=== PATIENT | female | born 1985 | race Caucasian/White ===

== ENCOUNTER 2016-04-13 12:42 | Emergency (ER) | payer OTHER ==
--- NOTE | 2016-04-13 13:40 | ED CLINICAL REPORT ---
Clinical Report - Physicians/Mid Levels [facility] [address] [place] [address] 04/13/2016 12:45 [id number] Time Seen: 13:17; initial patient contact, initial documentation, patient care assumed. Arrived- By private vehicle. Historian- patient. HISTORY OF PRESENT ILLNESS Chief Complaint: COUGH, FEVER, CHILLS and MUSCLE ACHES. This started about 6 days ago and is still present. The illness is described as moderate. The patient has had a cough, a sore throat, nasal congestion, sinus pressure and sinus drainage. She has had fever, muscle aches, a nasal discharge and ear pain. She has had scant amounts of thick, green sputum. No difficulty breathing or chest discomfort or pain. (has not had to use her inhalers). Additional history - No known contact with a sick individual. No recent travel. Similar symptoms previously: None. Recent medical care: Not recently seen/assessed. REVIEW OF SYSTEMS The patient has had a headache. No vomiting or diarrhea. All systems otherwise negative, except as recorded above. PAST HISTORY See nurses notes. PROBLEMS: Urinary Retention. Benign Prostatic Hypertrophy. UTI - Urinary Tract Infection. Incontinence. Bladder Infections. Frequent urination. Hypertension. Elevated Cholesterol. --12:53 Kelsea Quinn RBrianN. ADDITIONAL SURGERIES: Both hands operated on. Coronary Artery Bypass Graft. Hernia Repair. --12:53 Kelsea Quinn R.N. SOCIAL HISTORY Light tobacco smoker. Occasional alcohol use. Not exposed to second-hand smoke at home. No drug use. No recent travel. Is a local resident. FAMILY HISTORY Negative. ADDITIONAL NOTES The nursing notes have been reviewed with agreement regarding the chief complaint, HPI, ROS, PMH and patient medications and allergies. PHYSICAL EXAM Vital Signs: 04/13/2016 13:12 BP: 137/81. HR: 66. RR: 20. O2 saturation: 99%. Temp: 98.1 F. Pain level now: 5/10. Have been reviewed as normal and appear to be correct. Appearance: Alert. No acute distress. Eyes: Pupils equal, round and reactive to light. Eyes normal inspection. ENT: Ears not normal. Nose abnormal. Pharynx abnormal. Uvula midline. (post nasal drip seen, mild fluid behind B TM's, and mild frontal and maxillary sinus pressure). Neck: Normal inspection. Neck supple. CVS: Normal heart rate and rhythm. Heart sounds normal. Pulses normal. Respiratory: No respiratory distress. Breath sounds abnormal. Mild rales present in the bases bilaterally (very fine). Abdomen: Soft and nontender. No organomegaly. Back: Normal inspection. Skin: Skin warm and dry. Normal skin color. No rash. Normal skin turgor. Extremities: Extremities exhibit normal ROM. No lower extremity edema. Neuro: Oriented X 3. No motor deficit. No sensory deficit. PROGRESS AND PROCEDURES Patient counseled in person regarding the patient's stable condition and diagnosis. 13:39. Differential Diagnosis: Other possible considerations: asthma, flu, allergies, sinusitis, uri, bronchitis, pneumonia. Above considerations are based on history and physical exam. Differential diagnosis was discussed with patient. Disposition: Discharged home in good and unchanged condition (13:40). Condition: good and stable. CLINICAL IMPRESSION Acute maxillary and frontal sinusitis INSTRUCTIONS Alternate Tylenol (Acetaminophen) and Motrin (Ibuprofen) for fever, temperature greater than 101 degrees orally. Take according to label instructions. Drink plenty of fluids for the next 24 hours until better. Do not smoke. (over the counter saline sinus wash). Warnings: GENERAL WARNINGS: Return or contact your physician immediately if your condition worsens or changes unexpectedly, if not improving as expected, or if other problems arise. Specifically return if problem worsens. Prescription Medications: Nasacort nasal spray: 2 sprays in each nostril once daily as needed for allergies. Dispense one (1) unit. No refills. Substitution is permissible. Keflex 500 mg: take 1 capsule orally every 8 hours for 10 days. No refill. Follow-up: Follow up with your doctor in about five days even if well. Call for an appointment. Summary of care provided to patient. Understanding of the discharge instructions verbalized by patient. (Electronically signed by Diamond Gaona A.R.N.P. 04/13/2016 14:19)
--- NOTE | 2016-04-13 13:40 | ED NURSING NOTES ---
Clinical Report - Nurses [facility] [address] [place] [address] 04/13/2016 12:45 [id number] TRI[facility] Triage time 13:12. Acuity: LEVEL 3. Chief Complaint: FEVER, CHILLS, MUSCLE ACHES, FAINTING and NASAL CONGESTION (lt ear worse, both sound muffled.). Alert. No acute distress. SEPSIS SCREEN: Sepsis Screen: negative. Negative (no infection suspected/documented). SENAIT COMA SCORE: Senait Coma Scale: 15- eyes open spontaneously (4); best verbal response- oriented x 4 (5); best motor response- obeys commands (6). --13:20 Zeenat Shepard R.N. 13:12 04/13/16. BP: 137/81. HR: 66. RR: 20. O2 saturation: 99%. Temp: 98.1 F. Pain level now: 5/10. --13:20 Zeenat Shepard R.N. 13:12 04/13/16. BP: 137/81. HR: 66. RR: 20. O2 saturation: 99%. Temp: 98.1 F. Pain level now: 5/10. --13:20 Zeenat Shepard R.N. Weight: 54.4 kg stated. Height/Length: 64 inches. BMI: 20.6. --13:18 Zeenat Shepard R.N. Medications Control Pills. --13:22 Zeenat Shepard R.N. ALBUTEROL INHALER. --13:22 Zeenat Shepard R.N. Medication/allergy information source: the patient. --13:20 Zeenat Shepard R.N. Allergies Penicillins. Sulfa Antibiotics. --13:22 Zeenat Shepard R.N. History Arrived by private vehicle. Historian: patient. Accompanied by family. No primary care physician. Onset. (6 days ago). She has had fever, weakness and a cough. Reports muscle aches. No difficulty breathing. 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 PAST MEDICAL HX: Immunizations: up-to-date. Last normal menstrual period was 2 weeks ago. SOCIAL HX: Smoker- current status unknown. Occasional alcohol use. No drug use. FALL RISK ASSESSMENT: Fall risk assessment completed. No fall risk identified. NUTRITIONAL RISK ASSESSMENT: The nutritional risk assessment revealed no deficiencies. FUNCTIONAL ASSESSMENT: Functional assessment: no impairments noted. LEARNING NEEDS ASSESSMENT: The learning needs assessment revealed no barriers. SKIN INTEGRITY ASSESSMENT: Skin integrity risk assessment completed. No skin integrity risk identified. --13:20 Zeenat Shepard R.N. PROBLEMS: Contusion. Knee Injury. Laceration. Nail Bed Laceration. Hypertension. Sprain. Back Pain. Abdominal Pain. --13:16 Zeenat Shepard R.N. ADDITIONAL SURGERIES: . Previous Abdominal Surgery. --13:16 Zeenat Shepard R.N. Interventions ID band on patient. To room. --13:20 Zeenat Shepard R.N. PHYSICAL ASSESSMENT Ambulatory to room. Patient gowned. GENERAL / NEURO / PSYCH: Alert. Oriented X 4. Appears in pain and anxious. HEENT: Mucous membranes are pink. RESPIRATORY: Respirations not labored. CVS: Capillary refill less than 2 seconds. SKIN: Skin intact. Skin is warm and dry. Normal skin turgor. --13:21 Zeenat Shepard R.N. NURSING PROGRESS NOTES Patient gowned. Head of bed elevated. Two patient identifiers checked. Call light placed in reach. Side rails up x 2. Bed placed in lowest position. Brakes of bed on. Patient ready for evaluation. --13:22 Zeenat Shepard R.N. DISPOSITION / DISCHARGE Condition at departure: improved. No learning barriers present. Reviewed medication(s) side effects, precautions, dosing and course information. Prescription(s) given to the patient. Patient verbalized understanding. Written instructions provided in Khmer. The patient was discharged home and accompanied by spouse. She left the Emergency Department ambulatory and via private vehicle. Spouse driving. Medication list reviewed and validated. --14:08 Zeenat Shepard R.N. 13:12 04/13/16. BP: 137/81. HR: 66. RR: 20. O2 saturation: 99%. Temp: 98.1 F. Pain level now: 08/07. --14:08 Zeenat Shepard R.N. Locked/Released at 04/13/2016 14:09 by Zeenat Shepard R.N.
--- NOTE | 2016-04-13 13:40 | ED NURSING NOTES ---
Clinical Report - Nurses [facility] [address] [place] [address] 04/13/2016 12:45 [id number] TRI[facility] Triage time 13:12. Acuity: LEVEL 3. Chief Complaint: FEVER, CHILLS, MUSCLE ACHES, FAINTING and NASAL CONGESTION (lt ear worse, both sound muffled.). Alert. No acute distress. SEPSIS SCREEN: Sepsis Screen: negative. Negative (no infection suspected/documented). SEANIT COMA SCORE: Senait Coma Scale: 15- eyes open spontaneously (4); best verbal response- oriented x 4 (5); best motor response- obeys commands (6). --13:20 Zeenat Shepard R.N. 13:12 04/13/16. BP: 137/81. HR: 66. RR: 20. O2 saturation: 99%. Temp: 98.1 F. Pain level now: 5/10. --13:20 Zeenat Shepard R.N. 13:12 04/13/16. BP: 137/81. HR: 66. RR: 20. O2 saturation: 99%. Temp: 98.1 F. Pain level now: 5/10. --13:20 Zeenat Shepard R.N. Weight: 54.4 kg stated. Height/Length: 64 inches. BMI: 20.6. --13:18 Zeenat Shepard R.N. Medications Control Pills. --13:22 Zeenat Shepard R.N. ALBUTEROL INHALER. --13:22 Zeenat Shepard R.N. Medication/allergy information source: the patient. --13:20 Zeenat Shepard R.N. Allergies Penicillins. Sulfa Antibiotics. --13:22 Zeenat Shepard R.N. History Arrived by private vehicle. Historian: patient. Accompanied by family. No primary care physician. Onset. (6 days ago). She has had fever, weakness and a cough. Reports muscle aches. No difficulty breathing. 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 PAST MEDICAL HX: Immunizations: up-to-date. Last normal menstrual period was 2 weeks ago. SOCIAL HX: Smoker- current status unknown. Occasional alcohol use. No drug use. FALL RISK ASSESSMENT: Fall risk assessment completed. No fall risk identified. NUTRITIONAL RISK ASSESSMENT: The nutritional risk assessment revealed no deficiencies. FUNCTIONAL ASSESSMENT: Functional assessment: no impairments noted. LEARNING NEEDS ASSESSMENT: The learning needs assessment revealed no barriers. SKIN INTEGRITY ASSESSMENT: Skin integrity risk assessment completed. No skin integrity risk identified. --13:20 Zeenat Shepard R.N. PROBLEMS: Contusion. Knee Injury. Laceration. Nail Bed Laceration. Hypertension. Sprain. Back Pain. Abdominal Pain. --13:16 Zeenat Shepard R.N. ADDITIONAL SURGERIES: . Previous Abdominal Surgery. --13:16 Zeenat Shepard R.N. Interventions ID band on patient. To room. --13:20 Zeenat Shepard R.N. PHYSICAL ASSESSMENT Ambulatory to room. Patient gowned. GENERAL / NEURO / PSYCH: Alert. Oriented X 4. Appears in pain and anxious. HEENT: Mucous membranes are pink. RESPIRATORY: Respirations not labored. CVS: Capillary refill less than 2 seconds. SKIN: Skin intact. Skin is warm and dry. Normal skin turgor. --13:21 Zeenat Shepard R.N. NURSING PROGRESS NOTES Patient gowned. Head of bed elevated. Two patient identifiers checked. Call light placed in reach. Side rails up x 2. Bed placed in lowest position. Brakes of bed on. Patient ready for evaluation. --13:22 Zeenat Shepard R.N. DISPOSITION / DISCHARGE Condition at departure: improved. No learning barriers present. Reviewed medication(s) side effects, precautions, dosing and course information. Prescription(s) given to the patient. Patient verbalized understanding. Written instructions provided in Indonesian. The patient was discharged home and accompanied by spouse. She left the Emergency Department ambulatory and via private vehicle. Spouse driving. Medication list reviewed and validated. --14:08 Zeenat Shepard R.N. 13:12 04/13/16. BP: 137/81. HR: 66. RR: 20. O2 saturation: 99%. Temp: 98.1 F. Pain level now: 08/07. --14:08 Zeenat Shepard R.N. Locked/Released at 04/13/2016 14:09 by Zeenat Shepard R.N.
--- NOTE | 2016-04-13 14:19 | ED DISCHARGE INSTRUCTIONS ---
Patient: TRICIA BLOCK General Instructions [facility] VisitID: [id number] [place] [address] 30y, F Registration Date/Time: 04/13/2016 Acute maxillary and frontal sinusitis INSTRUCTIONS Alternate Tylenol (Acetaminophen) and Motrin (Ibuprofen) for fever, temperature greater than 101 degrees orally. Take according to label instructions. Drink plenty of fluids for the next 24 hours until better. Do not smoke. (over the counter saline sinus wash). Warnings: GENERAL WARNINGS: Return or contact your physician immediately if your condition worsens or changes unexpectedly, if not improving as expected, or if other problems arise. Specifically return if problem worsens. Prescription Medications: Nasacort nasal spray: 2 sprays in each nostril once daily as needed for allergies. Dispense one (1) unit. No refills. Substitution is permissible. Keflex 500 mg: take 1 capsule orally every 8 hours for 10 days. No refill. Follow-up: Follow up with your doctor in about five days even if well. Call for an appointment. Summary of care provided to patient. Understanding of the discharge instructions verbalized by patient. ADDITIONAL INFORMATION Sinusitis [Abx Tx] The sinuses are air-filled spaces within the bones of the face. They connect to the inside of the nose. Sinusitis is an inflammation of the tissue lining the sinus cavity. Sinus inflammation can occur during a cold or hay-fever (allergies to pollens and other particles in the air) and cause symptoms of sinus congestion and fullness. A sinus infection causes fever, headache and facial pain. There is usually green or yellow drainage from the nose or into the back of the throat (post-nasal drip). Antibiotics are prescribed to treat this condition. Home Care: Drink plenty of water, hot tea, and other liquids to stay well hydrated. This thins the mucus and promotes sinus drainage. Apply heat to the painful areas of the face. Use a towel soaked in hot water. Or, command and control systems integrator the shower and direct the hot spray onto your face. This is a good way to inhale warm water vapor and get heat on your face at the same time. (Cover your mouth and nose with your hands so you can still breathe as you do this.) Use a vaporizer with products such as Vicks VapoRub (contains menthol) at night. Suck on peppermint, menthol or eucalyptus hard candies during the day. An expectorant containing guaifenesin (such as Robitussin), helps to thin the mucus and promote drainage from the sinuses. Hjka-pvo-enatudm decongestants may be used unless a similar medicine was prescribed. Nasal sprays work the fastest. Use one that contains phenylephrine (Smith-synephrine, Sinex and others) or oxymetazoline (Afrin). First blow the nose gently to remove mucus, then apply the drops. Do not use these medicines more often than directed on the label or for more than three days or symptoms may worsen. You may also use tablets containing pseudoephedrine (Sudafed). Many sinus remedies combine ingredients, which may increase side effects. Read the labels or ask the pharmacist for help. NOTE: Persons with high blood pressure should not use decongestants. They can raise blood pressure. Antihistamines are useful if allergies are a cause of your sinusitis. The mildest one is chlorpheniramine (available without a prescription). The dose for adults is 8-12mg three times a day. [NOTE: Do not use chlorpheniramine if you have glaucoma or if you are a man with trouble urinating due to an enlarged prostate.] Claritin (loratidine) is an antihistamine that causes less drowsiness and is a good alternative for daytime use. Do not use nasal rinses or irrigation during an acute sinus infection, unless advised by your doctor. Rinsing may spread the infection to other sinuses. You may use acetaminophen (Tylenol) or ibuprofen (Motrin, Advil) to control pain, unless another pain medicine was prescribed. [ NOTE: If you have chronic liver or kidney disease or ever had a stomach ulcer, talk with your doctor before using these medicines.] (Aspirin should never be used in anyone under 18 years of age who is ill with a fever. It may cause severe liver damage.) Finish the full course, even if you are feeling better after a few days. Follow Up with your doctor or this facility in one week or as instructed by our staff if not improving. Get Prompt Medical Attention if any of the following occur: Facial pain or headache becomes more severe Stiff neck Unusual drowsiness or confusion, or not acting like your normal self Swelling of the forehead or eyelids Vision problems including blurred or double vision Fever of 100.4F (38C) or higher, or as directed by your healthcare provider Seizure Fever Control (Adult) A fever is a natural reaction of the body to an illness. In most cases, the temperature itself is not harmful. It actually helps the body fight infections. A fever does not need to be treated unless you feel very uncomfortable. Home Care If you feel warm, check your temperature. If you feel very uncomfortable and your temperature is at or higher than 100.4F (38C) oral, you may take acetaminophen (Tylenol) every 4 to 6 hours. If you cant take or keep down oral medicine, ask your pharmacist for Tylenol suppositories, which you can get without a prescription. If the fever does not respond to acetaminophen within 1 hour, take ibuprofen (Advil or Motrin). If this works, keep taking the ibuprofen every 6 to 8 hours. Note: If you have chronic liver or kidney disease or ever had a stomach ulcer or GI bleeding, talk with your doctor before using these medications. If either medication alone does not keep the fever down, you may alternate the two medicines every 3 to 4 hours, only if your healthcare provider has instructed you to do so. For example, take Motrin then wait 3 hours, take Tylenol then wait 3 hours, take Motrin, and so on. Follow your healthcare providers instructions exactly. Clothing: Keep clothing light because excess body heat is lost through the skin. The fever will go up if you wear extra layers or wrap in blankets. Fluids: Fever causes the body to lose water through evaporation. Drink plenty of fluids such as water, juice, clear sodas, dionicio lilian, or lemonade. Do not use aspirin in anyone under 18 years of age who is ill with a fever. It can cause severe liver damage. Follow Up with your doctor or as advised by our staff if you do not get better after 48 hours. Get Prompt Medical Attention if any of the following occur: Fever does not get better after taking fever medication Fast or difficult breathing Earache, sinus pain, stiff or painful neck, headache, repeated diarrhea or vomiting You feel unusually irritable, drowsy, or confused A rash appears You feel weak or dizzy, or that you might faint Triamcinolone Acetonide Nasal spray What is this medicine? TRIAMCINOLONE (trye am SIN oh lone) nasal spray is a corticosteroid. It is used to treat the nasal symptoms of seasonal and year round allergies. How should I use this medicine? This medicine is for use in the nose. Follow the directions on your prescription label. This medicine works best if used regularly. Do not use more often than directed. Make sure that you are using your nasal spray correctly. Ask you doctor or health care provider if you have any questions. Talk to your doctor of nursing practice regarding the use of this medicine in children. While this drug may be prescribed for children as young as 2 years of age for selected conditions, precautions do apply. What side effects may I notice from receiving this medicine? Side effects that you should report to your doctor or health district manager primary care sales as soon as possible: allergic reactions like skin rash, itching or hives, swelling of the face, lips, or tongue change in vision dizziness infection nosebleed, burning in the nose trouble breathing, wheezing unusual bruising white patches or sores in the nose Side effects that usually do not require medical attention (report to your doctor or health district manager primary care sales if they continue or are bothersome): congestion cough headache nausea runny nose sneezing What may interact with this medicine? Interactions are not expected. What if I miss a dose? If you miss a dose, take it as soon as you can. If it is almost time for your next dose, take only that dose. Do not take double or extra doses. Where should I keep my medicine? Keep out of the reach of children. Store at room temperature between 20 and 25 degrees C (68 and 77 degrees F). Throw away the canister after 120 sprays or after the expiration date, whichever comes first. What should I tell my health care provider before I take this medicine? They need to know if you have any of these conditions: infection, like tuberculosis, herpes, or fungal infection recent surgery or injury of nose or sinuses taking corticosteroids by mouth an unusual or allergic reaction to triamcinolone, corticosteroids, other medicines, foods, dyes, or preservatives or trying to get breast-feeding What should I watch for while using this medicine? Check with your doctor or health district manager primary care sales if your symptoms do not improve in 1 week of regular use or if they get worse. Do not come in contact with people who have chickenpox or the measles while you are taking this medicine. If you do, call your doctor right away. Cephalexin Monohydrate Oral tablet What is this medicine? CEPHALEXIN (sef a CHARMAINE in) is a cephalosporin antibiotic. It is used to treat certain kinds of bacterial infections It will not work for colds, flu, or other viral infections. How should I use this medicine? Take this medicine by mouth with a full glass of water. Follow the directions on the prescription label. This medicine can be taken with or without food. Take your medicine at regular intervals. Do not take your medicine more often than directed. Take all of your medicine as directed even if you think you are better. Do not skip doses or stop your medicine early. Talk to your doctor of nursing practice regarding the use of this medicine in children. While this drug may be prescribed for selected conditions, precautions do apply. What side effects may I notice from receiving this medicine? Side effects that you should report to your doctor or health district manager primary care sales as soon as possible: allergic reactions like skin rash, itching or hives, swelling of the face, lips, or tongue breathing problems pain or trouble passing urine redness, blistering, peeling or loosening of the skin, including inside the mouth severe or watery diarrhea unusually weak or tired yellowing of the eyes, skin Side effects that usually do not require medical attention (report to your doctor or health district manager primary care sales if they continue or are bothersome): gas or heartburn genital or anal irritation headache joint or muscle pain nausea, vomiting What may interact with this medicine? probenecid some other antibiotics What if I miss a dose? If you miss a dose, take it as soon as you can. If it is almost time for your next dose, take only that dose. Do not take double or extra doses. There should be at least 4 to 6 hours between doses. Where should I keep my medicine? Keep out of the reach of children. Store at room temperature between 59 and 86 degrees F (15 and 30 degrees C). Throw away any unused medicine after the expiration date. What should I tell my health care provider before I take this medicine? They need to know if you have any of these conditions: kidney disease stomach or intestine problems, especially colitis an unusual or allergic reaction to cephalexin, other cephalosporins, penicillins, other antibiotics, medicines, foods, dyes or preservatives or trying to get breast-feeding What should I watch for while using this medicine? Tell your doctor or health district manager primary care sales if your symptoms do not begin to improve in a few days. Do not treat diarrhea with over the counter products. Contact your doctor if you have diarrhea that lasts more than 2 days or if it is severe and watery. If you have diabetes, you may get a false-positive result for sugar in your urine. Check with your doctor or health district manager primary care sales. You have been given the following additional information: Sinusitis, Abx Tx Fever Control (Adult) Triamcinolone Acetonide Nasal spray Cephalexin Monohydrate Oral tablet (Electronically signed by Diamond Gaona A.R.N.P. 04/13/2016 14:19)
--- NOTE | 2016-04-13 14:19 | ED MAR SUMMARY ---
..... Medication Administration Record [facility] [address] [place], [place] [id number] Patient: TRICIA BLOCK Visit ID: [id number] 30y, F Weight: 54.4 kg Height/Length: 64 in BMI: 20.6 ALLERGIES: Penicillins, Sulfa Antibiotics
--- NOTE | 2016-04-13 14:19 | ED MED RECONCILIATION SUMMARY ---
Patient: TRICIA BLOCK Medication Reconciliation Report [facility] VisitID: [id number] [place] [address] 30y, F Registration Date/Time: 04/13/2016 Weight: 54.4 kg Height/Length: 64 in. BMI: 20.6 ALLERGIES: Penicillins, Sulfa Antibiotics The patient's Home Medications are listed below: THE FOLLOWING MEDICATIONS NEED TO BE RECONCILED: ALBUTEROL INHALER Control Pills The source(s) of the original Home Medication information: patient The following Medications were given to the patient in the Emergency Department: None. The following Medications were prescribed to the patient: Nasacort nasal spray: 2 sprays in each nostril once daily as needed for allergies. Dispense one (1) unit. No refills. Substitution is permissible. -- Diamond Gaona, Jer.R.N.P. Keflex 500 mg: take 1 capsule orally every 8 hours for 10 days. No refill. -- Diamond Gaona A.R.N.P.
--- NOTE | 2016-04-13 14:19 | ED MED RECONCILIATION SUMMARY ---
Patient: TRICIA BLOCK Medication Reconciliation Report [facility] VisitID: [id number] [place] [address] 30y, F Registration Date/Time: 04/13/2016 Weight: 54.4 kg Height/Length: 64 in. BMI: 20.6 ALLERGIES: Penicillins, Sulfa Antibiotics The patient's Home Medications are listed below: THE FOLLOWING MEDICATIONS NEED TO BE RECONCILED: ALBUTEROL INHALER Control Pills The source(s) of the original Home Medication information: patient The following Medications were given to the patient in the Emergency Department: None. The following Medications were prescribed to the patient: Nasacort nasal spray: 2 sprays in each nostril once daily as needed for allergies. Dispense one (1) unit. No refills. Substitution is permissible. -- Diamond Gaona, Jer.R.N.P. Keflex 500 mg: take 1 capsule orally every 8 hours for 10 days. No refill. -- Diamond Gaona A.R.N.P.
--- NOTE | 2016-04-13 14:19 | ED MAR SUMMARY ---
..... Medication Administration Record [facility] [address] [place], [place] [id number] Patient: TRICIA BLOCK Visit ID: [id number] 30y, F Weight: 54.4 kg Height/Length: 64 in BMI: 20.6 ALLERGIES: Penicillins, Sulfa Antibiotics
== END 2016-04-13 13:55 | disposition home or self-care (01) ==
LOC: ED SRH 12:42
DX: J01.00 Acute maxillary sinusitis, unspecified (principal); J01.10 Acute frontal sinusitis, unspecified; I10 Essential (primary) hypertension; F17.200 Nicotine dependence, unspecified, uncomplicated; Z88.0 Allergy status to penicillin; Z88.2 Allergy status to sulfonamides

== ENCOUNTER 2016-06-08 14:55 | Emergency (ER) | payer OTHER ==
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
--- NOTE | 2016-06-10 12:06 | ED MED RECONCILIATION SUMMARY ---
Patient: TRICIA BLOCK Medication Reconciliation Report [facility] VisitID: [id number] [place] [address] 30y, F Registration Date/Time: 06/08/2016 Weight: 54.4 kg Height/Length: 64 in. BMI: 20.6 ALLERGIES: Latex, Penicillins, Sulfa Antibiotics The patient's Home Medications are listed below: CONTINUE TAKING THE FOLLOWING MEDICATIONS: ALBUTEROL INHALER Aleve Oral Control Pills Flonase Nasal The source(s) of the original Home Medication information: patient The following Medications were given to the patient in the Emergency Department: None. The following Medications were prescribed to the patient: Hydrocodone/APAP 5mg/325mg: take 1 to 2 orally every 6 hours as needed for pain. Dispense fifteen (15). No refills. -- Refugio Oneill MD Ibuprofen 600mg tablets: take 1 tablet orally every 8 hours as needed for pain. Dispense thirty (30). No refills. -- Refugio Oneill MD Soma 350 mg: Take 1 orally every 6 hours as needed for muscle spasm. Dispense twenty (20). No refills. Substitution is permissible. -- Refugio Oneill MD
--- NOTE | 2016-06-10 12:06 | ED MAR SUMMARY ---
..... Medication Administration Record [facility] [address], [place] [id number] Patient: TRICIA BLOCK Visit ID: [id number] 30y, F Weight: 54.4 kg Height/Length: 64 in BMI: 20.6 ALLERGIES: Latex, Penicillins, Sulfa Antibiotics
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
--- NOTE | 2016-06-10 12:06 | ED MAR SUMMARY ---
..... Medication Administration Record [facility] [address], [place] [id number] Patient: TRICIA BLOCK Visit ID: [id number] 30y, F Weight: 54.4 kg Height/Length: 64 in BMI: 20.6 ALLERGIES: Latex, Penicillins, Sulfa Antibiotics
--- NOTE | 2016-06-10 12:06 | ED MED RECONCILIATION SUMMARY ---
Patient: TRICIA BLOCK Medication Reconciliation Report [facility] VisitID: [id number] [place] [address] 30y, F Registration Date/Time: 06/08/2016 Weight: 54.4 kg Height/Length: 64 in. BMI: 20.6 ALLERGIES: Latex, Penicillins, Sulfa Antibiotics The patient's Home Medications are listed below: CONTINUE TAKING THE FOLLOWING MEDICATIONS: ALBUTEROL INHALER Aleve Oral Control Pills Flonase Nasal The source(s) of the original Home Medication information: patient The following Medications were given to the patient in the Emergency Department: None. The following Medications were prescribed to the patient: Hydrocodone/APAP 5mg/325mg: take 1 to 2 orally every 6 hours as needed for pain. Dispense fifteen (15). No refills. -- Refugio Oneill MD Ibuprofen 600mg tablets: take 1 tablet orally every 8 hours as needed for pain. Dispense thirty (30). No refills. -- Refugio Oneill MD Soma 350 mg: Take 1 orally every 6 hours as needed for muscle spasm. Dispense twenty (20). No refills. Substitution is permissible. -- Refugio Oneill MD
== END 2016-06-08 16:00 | disposition home or self-care (01) ==
LOC: ED SRH 14:55
DX: S29.012A Strain of muscle and tendon of back wall of thorax, initial encounter (principal); S46.811A Strain of other muscles, fascia and tendons at shoulder and upper arm level, right arm, initial encounter; V43.52XA Car driver injured in collision with other type car in traffic accident, initial encounter; Y93.89 Activity, other specified; Y92.410 Unspecified street and highway as the place of occurrence of the external cause; Y99.9 Unspecified external cause status; I10 Essential (primary) hypertension; Z79.51 Long term (current) use of inhaled steroids; Z88.0 Allergy status to penicillin; Z79.1 Long term (current) use of non-steroidal anti-inflammatories (NSAID)